=== PATIENT | male | born 1965 | race Caucasian/White ===

== ENCOUNTER 2019-08-17 12:33 | Emergency (ER) | payer BC ==
[2019-08-17 12:53] VITALS: BP 143/79
--- NOTE | 2019-08-17 13:12 | UC ---
Cardiac HPI - HPI Summary HPI Summary: 54 male has had CP for 2 years States he wake up every AM with mild SSCP He gets up and the pain goes away No SOB no n/v no dyspepsia no wt change drinks 2 cups of coffee /d drinks 2 cups of tea/d no NSAID use no black stool - History of Current Complaint Chief Complaint: UCGeneralIllness Stated Complaint: CHESTPAIN Time Seen by Provider: 08/17/19 12:58 Hx Obtained From: Patient Onset/Duration: Sudden Onset, Lasting Minutes Timing: Intermittent Episodes Lasting: - minutes Initial Severity: Mild Current Severity: None Pain Intensity: 2 - every AM Chest Pain Location: Discrete at:, Lower Sternal Character: Dull/Aching Aggravating Factor(s): Nothing Alleviating Factor(s): Spontaneous Resolution Associated Signs & Symptoms: Positive: Chest Pain. Negative: Vision Changes, Anxiety, Recent Stress, Headaches, Numbness, Tingling, Weakness, Dizziness, SOB , Swelling, Syncope, Fever, Diaphoresis, Nausea/Vomiting, Palpitations, Cough, Hemoptysis, Back Pain, Abdominal Pain, Calf Pain/Swelling - Allergy/Home Medications Allergies/Adverse Reactions: Allergies Allergy/AdvReac Type Severity Reaction Status Date / Time No Known Allergies Allergy Verified 08/17/19 12:53 PMH/Surg Hx/FS Hx/Imm Hx Previously Healthy: Yes - Surgical History Surgical History: None - Family History Known Family History: Negative: Cardiac Disease, Hypertension, Diabetes - Social History Alcohol Use: Occasionally Substance Use Type: None Smoking Status (MU): Never Smoked Tobacco Review of Systems All Other Systems Reviewed And Are Negative: Yes Constitutional: Positive: Negative Skin: Positive: Negative Eyes: Positive: Negative ENT: Positive: Negative Respiratory: Positive: Negative Cardiovascular: Positive: Chest Pain Gastrointestinal: Positive: Negative Genitourinary: Positive: Negative Motor: Positive: Negative Neurovascular: Positive: Negative Musculoskeletal: Positive: Negative Neurological: Positive: Negative Psychological: Positive: Negative Physical Exam Triage Information Reviewed: Yes Appearance: Well-Appearing, No Pain Distress, Well-Nourished Vital Signs: Initial Vital Signs Temp 98.0 F 08/17/19 12:48 Pulse 77 08/17/19 12:48 Resp 18 08/17/19 12:48 BP 143/79 08/17/19 12:48 Pulse Ox 100 08/17/19 12:48 Vital Signs Reviewed: Yes Eyes: Positive: Conjunctiva Clear ENT: Positive: Hearing grossly normal, Uvula midline. Negative: Nasal congestion, Nasal drainage, Tonsillar swelling, Tonsillar exudate, Hoarse voice , Sinus tenderness Dental Exam: Normal Neck: Positive: Supple, Nontender, No Lymphadenopathy Respiratory: Positive: Chest non-tender, Lungs clear, Normal breath sounds, No respiratory distress, No accessory muscle use Cardiovascular: Positive: RRR, No Murmur Abdomen Description: Positive: Nontender, No Organomegaly. Negative: CVA Tenderness (R), CVA Tenderness (L) Bowel Sounds: Positive: Present Musculoskeletal: Positive: ROM Intact, No Edema Neurological: Positive: Alert Psychological Exam: Normal Skin Exam: Normal - Clinical Impression Provider Diagnosis: Non-cardiac chest pain Discharge ED - Sign-Out/Discharge Documenting (check all that apply): Patient Departure All imaging exams completed and their final reports reviewed: No Studies - Discharge Plan Condition: Stable Disposition: HOME Prescriptions: Famotidine TAB* [Pepcid 20 MG TAB*] 20 mg PO DAILY #14 tab Patient Education Materials: Noncardiac Chest Pain (ED) Referrals: Miguel Pittman MD [Primary Care Provider] - 2 Weeks (I suggest you follow up with your MD for further evaluation) - Billing Disposition and Condition Condition: STABLE Disposition: Home
== END 2019-08-17 13:28 | disposition home or self-care (01) ==
LOC: UCEAST 12:33
DX: R07.89 Other chest pain (principal)
CPT/HCPCS: 99212; G0463